=== PATIENT | male | born 1970 | race Caucasian/White ===

== ENCOUNTER 2018-04-22 21:13 | Emergency (ER) | payer OTHER ==
[~2018-04-22] VITALS: Ht 182.9 cm; Wt 99.3 kg
[2018-04-22 21:16] VITALS: BP 141/94; Ht 182.9 cm; Wt 99.3 kg
== END 2018-04-22 22:52 | disposition left against medical advice (07) ==
LOC: ED 21:13
DX: Z53.21 Procedure and treatment not carried out due to patient leaving prior to being seen by health care provider (principal)

== ENCOUNTER 2019-02-07 19:48 | Emergency (ER) | payer OTHER ==
[~2019-02-07] VITALS: Ht 180.3 cm; Wt 104.8 kg
[2019-02-07 19:51] VITALS: Ht 180.3 cm; Wt 104.8 kg
[2019-02-07 21:54] VITALS: BP 168/92
== END 2019-02-07 21:55 | disposition home or self-care (01) ==
LOC: ED 19:48
DX: M25.561 Pain in right knee (principal); G89.29 Other chronic pain; Z98.890 Other specified postprocedural states